=== PATIENT | male | born 1975 | race Caucasian/White ===

== ENCOUNTER → 2020-04-30 | Outpatient (CLI) | payer OTHER ==
--- NOTE | 2020-05-01 08:28 | RAD ---
EXAMINATION: XR LT WRIST 3VIEWS CLINICAL HISTORY: Left wrist injury with lump on wrist TECHNIQUE: XR LT WRIST 3VIEWS Number of Images/Views: 3 COMPARISON: None FINDINGS: Subchondral cystic changes and sclerosis along the ulnar aspect of the proximal lunate. Questionable mild positive ulnar variance, suboptimally assessed due to patient positioning. Findings are nonspeci fic, but suggestive of ulnocarpal abutment. Joint spaces and alignment otherwise maintained. No acute fracture. Mild soft tissue swelling. IMPRESSION: No acute osseous abnormality left wrist. Findings suggestive of ulnocarpal abutment as described. Electronically signed by: Roel Mendosa DO (05/01/2020 8:25 AM) [id number]
== END ==
LOC: DXRAD 13:02
PROVIDERS: ATTEND Physician Assistant
DX: M25.532 Pain in left wrist (principal)
CPT/HCPCS: 73110